=== PATIENT | male | born 1995 | race Caucasian/White ===

== ENCOUNTER 2024-07-20 17:21 | Emergency (ER) | payer SELFPAY ==
[2024-07-20] MEDS: predniSONE 10 MG Tab PO ONE (17:51)
[2024-07-20] MEDS: Cephalexin 500 MG Cap PO ONE (17:52)
== END 2024-07-20 18:36 ==
LOC: MW.ED 17:21
DX: T63.441A Toxic effect of venom of bees, accidental (unintentional), initial encounter (principal); L03.211 Cellulitis of face; Z79.899 Other long term (current) drug therapy; Z75.8 Other problems related to medical facilities and other health care; Z91.030 Bee allergy status
CPT/HCPCS: 99283; A9270